=== PATIENT | male | born 1985 | race Caucasian/White ===

== ENCOUNTER 2019-12-04 16:00 | Emergency (ER) | payer SELFPAY ==
--- NOTE | 2019-12-04 17:00 | RAD REPORT ---
EXAM DESCRIPTION: RAD -Hand Left 3 View - 12/04/2019 4:39 pm CLINICAL HISTORY: Left hand pain status post injury FINDINGS: No fracture or dislocation is seen. A bandage has been placed
[2019-12-04] MEDS ORDERED: LIDOCAINE 1% MPF 30 ML VIAL ONE (17:23)
--- NOTE | 2019-12-04 18:03 | ER ---
Nurse's Notes [facility] Name: Tim Richter Age: 34 yrs Sex: Male : 1985 Arrival Date: 12/04/2019 Time: 16:01 Bed 27 Private MD: Diagnosis: Laceration without foreign body to palmar surface of left hand Presentation: 12/04 16:05 Presenting complaint: Patient states: laceration to the left hand with some glass sv today. Transition of care: patient was not received from another setting of care. Onset of symptoms was December 04, 2019. 16:05 Method Of Arrival: Ambulatory sv 16:05 Acuity: YANNI 3 sv 18:00 Complicating Factors: There are no complicating factors for this patient. Risk iw Assessment: Do you want to hurt yourself or someone else? Patient reports no desire to harm self or others. Initial Sepsis Screen: Does the patient meet any 2 criteria? No. Patient's initial sepsis screen is negative. Does the patient have a suspected source of infection? No. Patient's initial sepsis screen is negative. Care prior to arrival: None. Triage Assessment: 16:05 General: Appears in no apparent distress. uncomfortable, Behavior is cooperative, sv appropriate for age, anxious. Neuro: Level of Consciousness is awake, alert, obeys commands, Gait is steady. Respiratory: Respiratory effort is even, unlabored. Injury Description: Laceration sustained to palm of left hand is contaminated, was sustained 30-60 minutes ago. is bleeding a small amount. Historical: - Allergies: 16:06 No Known Allergies; sv - PMHx: 16:06 None; sv - PSHx: 16:06 back; sv - Immunization history:: Last tetanus immunization: up to date. - Ebola Screening: : Patient negative for fever greater than or equal to 101.5 degrees Fahrenheit, and additional compatible Ebola Virus Disease symptoms Patient denies exposure to infectious person Patient denies travel to an Ebola-affected area in the 21 days before illness onset No symptoms or risks identified at this time. - Social history:: Smoking status: unknown. Screenin:00 Abuse screen: Denies threats or abuse. Denies injuries from another. Nutritional iw screening: No deficits noted. Tuberculosis screening: No symptoms or risk factors identified. Fall Risk None identified. Assessment: 18:00 General: Appears in no apparent distress. Behavior is calm, cooperative. Pain: Denies iw pain. Neuro: Level of Consciousness is awake, alert, obeys commands, Oriented to person, place, time, situation, Moves all extremities. Full function. Cardiovascular: Patient's skin is warm and dry. Respiratory: Respiratory effort is even, unlabored, Respiratory pattern is regular, symmetrical. Derm: Skin is healthy with good turgor. Musculoskeletal: Range of motion: intact in all extremities. Injury Description: Laceration sustained to palm of left hand. 18:10 Injury Description: Laceration sustained to palm of left hand. iw Vital Signs: 16:06 BP 142 / 96; Pulse 78; Resp 18; Temp 97.3; Pulse Ox 100% ; Weight 86.64 kg; Height 6 sv ft. 2 in. (187.96 cm); 16:06 Body Mass Index 24.52 (86.64 kg, 187.96 cm) sv ED Course: 16:01 Patient arrived in ED. as 16:05 Triage completed. sv 16:06 Arm band placed on. sv 16:13 Pressure dressing applied. sv 16:41 Hand Left 3 View XRAY In Process Unspecified. EDMS 17:02 Sergio Lind FNP-C is PHCP. la1 17:02 Sd Rosa MD is Attending Physician. la1 18:00 Patient has correct armband on for positive identification. iw 18:10 Assist provider with laceration repair on palm of left hand that was between 2.6 to 7.5 iw cm Performed by Sergio MURGUIA-C Dressed with 4X4s, Kimmy, Patient tolerated well. Patient did not have IV access during this emergency room visit. 18:12 Emelina Richter, RN is Primary Nurse. iw Administered Medications: 17:50 Drug: Lidocaine (1 %) 20 ml Volume: 20 ml; Route: Infiltration; iw Outcome: 18:02 Discharge ordered by . la1 18:12 Discharged to home ambulatory, with family. iw 18:12 Condition: good 18:12 Discharge instructions given to patient, family, Instructed on discharge instructions, follow up and referral plans. Demonstrated understanding of instructions, follow-up care. 18:13 Patient left the ED. iw Signatures: Dispatcher [employer] EDMS Sallie Cantor RN RN sv Selma Ryan as Emelina Richter, RN RN iw Sergio Lind, HAIR OR BEAUTY SALON ASSISTANT-C HAIR OR BEAUTY SALON ASSISTANT-Cla1
--- NOTE | 2019-12-04 18:03 | EDPHYS ---
Physician Documentation [facility] Name: Tim Richter Age: 34 yrs Sex: Male : 1985 Arrival Date: 12/04/2019 Time: 16:01 Bed 27 Private MD: ED Physician Sd Rosa HPI: 12/04 18:02 This 34 yrs old Male presents to ER via Ambulatory with complaints of la1 Laceration To Hand. 18:02 The patient has a laceration related to: playing, occurred at home. The laceration(s) la1 is(are) located on the palm of left hand. Onset: The symptoms/episode began/occurred just prior to arrival. Associated signs and symptoms: Pertinent negatives: deformity, dizziness, heavy bleeding, loss of consciousness, numbness distal to injury, suspected foreign body. The patient has not experienced similar symptoms in the past. pt was running and fell on to a glass jar with hand outstretched. Historical: - Allergies: 16:06 No Known Allergies; sv - PMHx: 16:06 None; sv - PSHx: 16:06 back; sv - Immunization history:: Last tetanus immunization: up to date. - Ebola Screening: : Patient negative for fever greater than or equal to 101.5 degrees Fahrenheit, and additional compatible Ebola Virus Disease symptoms Patient denies exposure to infectious person Patient denies travel to an Ebola-affected area in the 21 days before illness onset No symptoms or risks identified at this time. - Social history:: Smoking status: unknown. ROS: 18:03 Constitutional: Negative for fever, chills, and weight loss, Eyes: Negative for injury, la1 pain, redness, and discharge, ENT: Negative for injury, pain, and discharge, Neck: Negative for injury, pain, and swelling, Cardiovascular: Negative for chest pain, palpitations, and edema, Respiratory: Negative for shortness of breath, cough, wheezing, and pleuritic chest pain, Abdomen/GI: Negative for abdominal pain, nausea, vomiting, diarrhea, and constipation, Back: Negative for injury and pain. 18:03 Skin: Positive for laceration(s), of the palm of left hand. Exam: 18:04 Constitutional: This is a well developed, well nourished patient who is awake, alert, la1 and in no acute distress. Head/Face: Normocephalic, atraumatic. Eyes: Pupils equal round and reactive to light, extra-ocular motions intact. Periorbital areas with no swelling, redness, or edema. ENT: . Mucous membranes moist. Neck: Trachea midline, no thyromegaly or masses palpated, and no cervical lymphadenopathy. Supple, full range of motion without nuchal rigidity, or vertebral point tenderness. No Meningismus. Chest/axilla: Normal chest wall appearance and motion. Nontender with no deformity. No lesions are appreciated. Cardiovascular: Regular rate and rhythm with a normal S1 and S2. No gallops, murmurs, or rubs. Normal PMI, no JVD. No pulse deficits. Respiratory: Lungs have equal breath sounds bilaterally, clear to auscultation No rales, rhonchi or wheezes noted. No increased work of breathing, no retractions or nasal flaring. Abdomen/GI: Soft, non-tender, with normal bowel sounds. No distension or tympany. No guarding or rebound. No evidence of tenderness throughout. Back: No spinal tenderness. No costovertebral tenderness. Full range of motion. MS/ Extremity: Pulses equal, no cyanosis. Neurovascular intact. Full, normal range of motion. 18:04 Skin: injury, laceration(s), the wound is approximately 4.5 cm(s), with a depth of 1 cm(s), of the palm of left hand. Vital Signs: 16:06 BP 142 / 96; Pulse 78; Resp 18; Temp 97.3; Pulse Ox 100% ; Weight 86.64 kg; Height 6 sv ft. 2 in. (187.96 cm); 16:06 Body Mass Index 24.52 (86.64 kg, 187.96 cm) sv Laceration: 18:05 Wound Repair of 4.5cm ( 1.8in ) subcutaneous laceration to palm of left hand. Linear la1 shaped.. Distal neuro/vascular/tendon intact. Anesthesia: Local anesthetic administered with 7 mls of 1% lidocaine. Wound prep: Moderate cleansing, Copious irrigation. Skin closed with 6 4-0 Prolene using simple sutures and sterile technique. Dressed with Kerlix, non-adherent dressing. Patient tolerated well. MDM: 17:16 Patient medically screened. la1 18:06 Data reviewed: vital signs, nurses notes, and as a result, I will discharge patient. la1 Data interpreted: Pulse oximetry: on room air is 100 %. Interpretation: normal. Counseling: I had a detailed discussion with the patient and/or guardian regarding: the historical points, exam findings, and any diagnostic results supporting the discharge/admit diagnosis, radiology results, the need for outpatient follow up, a family practitioner, to return to the emergency department if symptoms worsen or persist or if there are any questions or concerns that arise at home. Special discussion: I discussed with the patient/guardian that the patient's current presentation does not indicate dosing of antibiotics. They should follow-up with their primary care provider and return if the symptoms persist or progress. 12/04 16:12 Order name: Hand Left 3 View XRAY; Complete Time: 17:16 sv 12/04 17:20 Order name: Suture Tray at Bedside; Complete Time: 18:13 la1 12/04 17:20 Order name: Sutures, Prolene; Complete Time: 18:13 la1 Administered Medications: 17:50 Drug: Lidocaine (1 %) 20 ml Volume: 20 ml; Route: Infiltration; iw Disposition: 12/05 06:15 Co-signature as Attending Physician, Sd Rosa MD I agree with the assessment and radha plan of care. Disposition: 12/04/19 18:02 Discharged to Home. Impression: Laceration without foreign body to palmar surface of left hand. - Condition is Stable. - Discharge Instructions: Laceration Care, Adult, Sutured Wound Care, Laceration Care, Adult, [id number]. - Medication Reconciliation Form, Thank You Letter form. - Follow up: Private Physician; When: 7 - 10 days; Reason: Wound Recheck, Recheck today's complaints, Re-evaluation by your physician. - Problem is new. - Symptoms have improved. Signatures: Dispatcher [employer] Sallie Alva RN RN sv Anderson, Corey, MD MD cha Williams, Irene, RN RN iw Attema, Lee, FNP-C CORPORATE SCHEDULER-Cla1 Corrections: (The following items were deleted from the chart) 12/04 18:13 18:02 12/04/2019 18:02 Discharged to Home. Impression: Laceration without foreign body iw to palmar surface of left hand. Condition is Stable. Forms are Medication Reconciliation Form, Thank You Letter, Antibiotic Education, Prescription Opioid Use. Follow up: Private Physician; When: 7 - 10 days; Reason: Wound Recheck, Recheck today's complaints, Re-evaluation by your physician. Problem is new. Symptoms have improved. la1
[2019-12-04 18:26] VITALS: BP 142/96; TEMP 97.3; O2SAT 100
== END 2019-12-04 18:13 | disposition home or self-care (01) ==
LOC: ER 16:00
PROC: 0JQK0ZZ Repair Left Hand Subcutaneous Tissue and Fascia, Open Approach (ICD-10-PCS; principal; 2019-12-04)
DX: S61.412A Laceration without foreign body of left hand, initial encounter (principal); W25.XXXA Contact with sharp glass, initial encounter; Y93.9 Activity, unspecified; Y92.9 Unspecified place or not applicable
CPT/HCPCS: 99284

== ENCOUNTER 2020-04-29 02:23 | Emergency (ER) | payer SELFPAY ==
[2020-04-29 02:57] LABS: Protime INR 0.92
[2020-04-29 02:58] LABS: Absolute Lymphocytes (CBC) 3.7 K/uL (0.7-4.9); Basophils % 0.7 % (0-1.3); Hematocrit 42.7 % (39.6-49.0); Lymphocytes % 31.2 % (15.3-44.8); RBC Red Blood Cell Count 4.59 M/uL (4.33-5.43)
[2020-04-29 03:24] LABS: ALT/SGPT 17 U/L (12-78); AST/SGOT 19 U/L (15-37); Albumin 3.8 g/dL (3.4-5.0); Alkaline Phosphatase 60 U/L (45-117); BUN Blood Urea Nitrogen 11 mg/dL (7-18); Bicarbonate 27 mmol/L (21-32); Bilirubin Direct < 0.1 mg/dL (0-0.2); Bilirubin Total 0.3 mg/dL (0.2-1.0); Glucose Level 87 mg/dL (74-106); Magnesium 1.8 mg/dL (1.8-2.4); NT PRO-BNP 25 pg/mL (<125); Potassium 3.3 mmol/L (3.5-5.1); Protein, Total 7.1 g/dL (6.4-8.2); Sodium Level 138 mmol/L (136-145); Troponin (Emerg Dept Use Only) < 0.02 ng/mL (0.0-0.045)
[2020-04-29] MEDS ORDERED: NA CHLORIDE 0.9% 500 ML ONE (03:29)
[2020-04-29] MEDS ORDERED: LIDOCAINE 1% W/EPI 1:100,000 MDV 50 ML VIAL ONE (05:18)
[2020-04-29] MEDS ORDERED: MAGNE/ALUM HYDROXD 30 ML UCUP ONE (05:18)
[2020-04-29 06:03] LABS: Barbiturates NEGATIVE (NEGATIVE); Benzodiazepines NEGATIVE (NEGATIVE); Cocaine NEGATIVE (NEGATIVE); METHAMPHETAM POSITIVE (NEGATIVE); Methadone NEGATIVE (NEGATIVE); Opiates NEGATIVE (NEGATIVE); Phencyclidine NEGATIVE (NEGATIVE); THC Cannibis POSITIVE (NEGATIVE)
--- NOTE | 2020-04-29 06:15 | ER ---
Nurse's Notes [facility] Name: Tim Richter Age: 34 yrs Sex: Male : 1985 Arrival Date: 04/29/2020 Time: 02:26 Bed 3 Private MD: Diagnosis: Chest pain, unspecified;Methamphetamine Abuse;Marijuana Use Presentation: 04/29 02:27 Chief complaint: EMS states: Chest pain that began about 1/2 half hours ago, pt stated sg the pain began in the chest and moved to the ankles and legs, pt was HR of 130 bpm, with blood pressure of 169/70. pt is observed to be handcuffed and has a police escort with [place] [employer] officer. Coronavirus screen: Proceed with normal triage. Ebola Screen: Patient negative for fever greater than or equal to 101.5 degrees Fahrenheit, and additional compatible Ebola Virus Disease symptoms Patient denies exposure to infectious person. Patient denies travel to an Ebola-affected area in the 21 days before illness onset. No symptoms or risks identified at this time. Initial Sepsis Screen: Does the patient meet any 2 criteria? No. Patient's initial sepsis screen is negative. Does the patient have a suspected source of infection? No. Patient's initial sepsis screen is negative. Risk Assessment: Do you want to hurt yourself or someone else? Patient reports no desire to harm self or others. Onset of symptoms was April 29, 2020. Care prior to arrival: None. Activity prior to arrival: combative. Mechanism of Injury: No Mechanism of Injury. Transition of care: patient was not received from another setting of care. 02:27 Method Of Arrival: EMS: [facility] sg 02:27 Acuity: YANNI 3 sg 02:27 Care prior to arrival: Medication(s) given: ASA, 81 mg, x 4. sg Historical: - Allergies: 02:31 Nitroglycerin (Syncope ); sg - Home Meds: 02:31 None [Active]; sg - PMHx: 02:39 Myocardial infarction; "mild, while incarcerated", no interventions reported; sg - PSHx: 02:31 back; sg - Immunization history:: Adult Immunizations up to date. - Social history:: Smoking status: Patient denies any tobacco usage or history of. Screenin:56 Abuse screen: Denies threats or abuse. Nutritional screening: No deficits noted. ea Tuberculosis screening: No symptoms or risk factors identified. Fall Risk IV access (20 points). Assessment: 02:25 General: Appears uncomfortable, Behavior is drowsy. Pain: Complains of pain in anterior ea aspect of left upper chest and left breast Pain does not radiate. Pain began 2 hours ago. Neuro: Level of Consciousness is awake, alert, obeys commands, Oriented to person, place, time. Cardiovascular: Patient's skin is warm and dry. Respiratory: Airway is patent Respiratory effort is even, unlabored, Respiratory pattern is regular, symmetrical. Derm: Skin is pink, warm \\T\\ dry. 03:03 Reassessment: Pt resting with eyes closed, respirations even and unlabored, chest ea expansions even and symmetrical. No s/s of pain or discomfort noted at this time. 04:21 Reassessment: Patient and/or family updated on plan of care and expected duration. Pain ea level reassessed. Patient is alert, oriented x 3, equal unlabored respirations, skin warm/dry/pink. 04:50 Reassessment: Patient and/or family updated on plan of care and expected duration. Pain ea level reassessed. Pt encouraged to urinate, pt reports he is unable to urinate at this time. 05:05 Reassessment: Patient and/or family updated on plan of care and expected duration. Pain ea level reassessed. Patient is alert, oriented x 3, equal unlabored respirations, skin warm/dry/pink. Pt reports epigastric pain states "it's not really pain it feels like acid reflux, more like a burning sensation" Provider notified, medication order obtained, medication administered, pt tolerating well. 05:37 Reassessment: Patient and/or family updated on plan of care and expected duration. Pain ea level reassessed. Patient is alert, oriented x 3, equal unlabored respirations, skin warm/dry/pink. Pt reports epigastric burning subsided. 05:40 Reassessment: urine specimen has been sent to the lab per Asher DE LA CRUZ. sg 05:59 Reassessment: patient released from police custody as stated by the police on duty. mg2 06:36 Reassessment: Patient and/or family updated on plan of care and expected duration. Pain ea level reassessed. Patient is alert, oriented x 3, equal unlabored respirations, skin warm/dry/pink. Discharge instruction given to patient, verbalized the understanding of instruction. Pt awaiting on ride home. Vital Signs: 02:27 BP 158 / 103; Pulse 90; Resp 14; Temp 97.7; Pulse Ox 100% on R/A; Pain 3/10; sg 02:57 BP 139 / 106; Pulse 83; Resp 16; Pulse Ox 100% ; ea 03:03 BP 139 / 77; Pulse 63; Resp 16; Pulse Ox 99% ; ea 03:47 BP 132 / 76; Pulse 70; Resp 17; Pulse Ox 99% on R/A; mg2 04:50 BP 131 / 77; Pulse 64; Resp 18; Pulse Ox 99% on R/A; ea 05:59 BP 148 / 98; Pulse 57; Resp 18; Pulse Ox 100% on R/A; mg2 03:47 patient still sleeping on bed. mg2 ED Course: 02:25 Patient has correct armband on for positive identification. Bed in low position. Call ea light in reach. nurse monitoring on. Pulse ox on. NIBP on. 02:25 Initial lab(s) drawn, by ED staff. Inserted saline lock: 20 gauge in right antecubital sg area, using aseptic technique. Blood collected. 02:26 Patient arrived in ED. sg 02:27 Nicanor Winston MD is Attending Physician. [facility] 02:30 Triage completed. sg 02:32 Arm band placed on. sg 02:33 Lindsey Lew, JONO is Primary Nurse. ea 02:55 XRAY Chest (1 view) In Process Unspecified. EDMS 02:56 Patient maintains SpO2 saturation greater than 95% on room air. ea 03:48 No provider procedures requiring assistance completed. mg2 06:16 IV discontinued, intact, bleeding controlled, No redness/swelling at site. Pressure mg2 dressing applied. Administered Medications: 03:00 Drug: NS 0.9% 500 ml Route: IV; Rate: bolus; Site: right antecubital; ea 06:38 Follow up: IV Status: Completed infusion; IV Intake: 500ml ea 05:11 Drug: GI Cocktail without - (Maalox Suspension 30 ml, Lidocaine Liquid 2 % 15 mg2 ml) Route: PO; 05:35 Follow up: Response: No adverse reaction; Marked relief of symptoms ea Intake: 06:38 IV: 500ml; Total: 500ml. ea Output: 05:36 Urine: 650ml (Voided); Total: 650ml. ea Outcome: 06:14 Discharge ordered by MD. medina 06:37 Discharge instructions given to patient, Instructed on discharge instructions, follow ea up and referral plans. Demonstrated understanding of instructions, follow-up care. 06:49 Discharged to home ambulatory. mg2 06:49 Condition: good 06:49 Patient left the ED. mg2 Signatures: Dispatcher [employer] EDMarcellus Taylor RN RN Lindsey Lew RN RN ea Gardose, Michele, RN RN mg2 Holmes, Maurice, MD MD [id number] Corrections: (The following items were deleted from the chart) 02:39 02:31 PMHx: Myocardial infarction; [facility] 02:54 02:27 Chief complaint: EMS states: Chest pain that began about 1 and 1/2 half hours sg ago, pt stated the pain began in the chest and moved to the ankles and legs, pt was HR of 130 bpm, with blood pressure of 169/70. pt is observed to be handcuffed and has a police escort with PD officer
--- NOTE | 2020-04-29 06:15 | EDPHYS ---
Physician Documentation [facility] Name: Tim Richter Age: 34 yrs Sex: Male : 1985 Arrival Date: 04/29/2020 Time: 02:26 Bed 3 Private MD: ED Physician Nicanor Winston HPI: 04/29 02:40 This 34 yrs old Male presents to ER via EMS with complaints of Chest Pain. [facility] 02:42 The patient or guardian reports chest pain that is located primarily in the anterior mh7 chest wall, bilaterally. The pain radiates to legs and ankles. 02:43 Associated signs and symptoms: Pertinent negatives: abdominal pain, cough, diaphoresis, mh7 dizziness, headache, lower extremity swelling, lightheadedness, nausea, near syncope, palpitations, recent travel, shortness of breath, syncope, vomiting. The chest pain is described as sharp. Duration: The patient or guardian reports multiple episodes, that are intermittent, that wax and wane, with no pattern. Modifying factors: The symptoms are alleviated by nothing. the symptoms are aggravated by emotionally stressful situations. Severity of pain: At its worst the pain was moderate today, in the emergency department the pain has improved markedly. EMS care prior to arrival includes: aspirin. Patient started having chest pain in police car after being arrested. Denies any SOB, nausea, vomiting, headache, abdominal pain, fever, cough. Initially reported having a mild heart attack in shelter 4 years ago but then stated that he was actually told that he had acid reflux and was given something to drink for it. He never had any interventional procedures and was never put on medications at that time.. Historical: - Allergies: 02:31 Nitroglycerin (Syncope ); sg - Home Meds: 02:31 None [Active]; sg - PMHx: 02:39 Myocardial infarction; "mild, while incarcerated", no interventions reported; sg - PSHx: 02:31 back; sg - Immunization history:: Adult Immunizations up to date. - Social history:: Smoking status: Patient denies any tobacco usage or history of. ROS: 02:43 Constitutional: Negative for fever, chills, and weight loss, Eyes: Negative for injury, mh7 pain, redness, and discharge, ENT: Negative for injury, pain, and discharge, Neck: Negative for injury, pain, and swelling, Respiratory: Negative for shortness of breath, cough, wheezing, and pleuritic chest pain, Abdomen/GI: Negative for abdominal pain, nausea, vomiting, diarrhea, and constipation, Back: Negative for injury and pain, : Negative for injury, bleeding, discharge, and swelling, MS/Extremity: Negative for injury and deformity, Skin: Negative for injury, rash, and discoloration, Neuro: Negative for headache, weakness, numbness, tingling, and seizure, Psych: Negative for depression, anxiety, suicide ideation, homicidal ideation, and hallucinations, Allergy/Immunology: Negative for hives, rash, and allergies, Endocrine: Negative for neck swelling, polydipsia, polyuria, polyphagia, and marked weight changes, Hematologic/Lymphatic: Negative for swollen nodes, abnormal bleeding, and unusual bruising. Exam: 02:43 Constitutional: This is a well developed, well nourished patient who is awake, alert, mh7 and in no acute distress. Head/Face: Normocephalic, atraumatic. Eyes: Pupils equal round and reactive to light, extra-ocular motions intact. Lids and lashes normal. Conjunctiva and sclera are non-icteric and not injected. Cornea within normal limits. Periorbital areas with no swelling, redness, or edema. ENT: Nares patent. No nasal discharge, no septal abnormalities noted. Tympanic membranes are normal and external auditory canals are clear. Oropharynx with no redness, swelling, or masses, exudates, or evidence of obstruction, uvula midline. Mucous membranes moist. Neck: Trachea midline, no thyromegaly or masses palpated, and no cervical lymphadenopathy. Supple, full range of motion without nuchal rigidity, or vertebral point tenderness. No Meningismus. Chest/axilla: Normal chest wall appearance and motion. Nontender with no deformity. No lesions are appreciated. Cardiovascular: Regular rate and rhythm with a normal S1 and S2. No gallops, murmurs, or rubs. Normal PMI, no JVD. No pulse deficits. Respiratory: Lungs have equal breath sounds bilaterally, clear to auscultation and percussion. No rales, rhonchi or wheezes noted. No increased work of breathing, no retractions or nasal flaring. Abdomen/GI: Soft, non-tender, with normal bowel sounds. No distension or tympany. No guarding or rebound. No evidence of tenderness throughout. Back: No spinal tenderness. No costovertebral tenderness. Full range of motion. Skin: Warm, dry with normal turgor. Normal color with no rashes, no lesions, and no evidence of cellulitis. MS/ Extremity: Pulses equal, no cyanosis. Neurovascular intact. Full, normal range of motion. Neuro: Awake and alert, GCS 15, oriented to person, place, time, and situation. Cranial nerves II-XII grossly intact. Motor strength 5/5 in all extremities. Sensory grossly intact. Cerebellar exam normal. Normal gait. 02:43 Psych: Behavior/mood is anxious, Affect is animated, Oriented to person, place, time, Patient has no thoughts/intents to harm self or others. Judgement / Insight is normal. Memory is normal. Delusions/hallucinations are not present. 02:52 ECG was reviewed by the Attending Physician. [facility] Vital Signs: 02:27 BP 158 / 103; Pulse 90; Resp 14; Temp 97.7; Pulse Ox 100% on R/A; Pain 3/10; sg 02:57 BP 139 / 106; Pulse 83; Resp 16; Pulse Ox 100% ; ea 03:03 BP 139 / 77; Pulse 63; Resp 16; Pulse Ox 99% ; ea 03:47 BP 132 / 76; Pulse 70; Resp 17; Pulse Ox 99% on R/A; mg2 04:50 BP 131 / 77; Pulse 64; Resp 18; Pulse Ox 99% on R/A; ea 05:59 BP 148 / 98; Pulse 57; Resp 18; Pulse Ox 100% on R/A; mg2 03:47 patient still sleeping on bed. mg2 MDM: 02:37 Patient medically screened. 7 06:10 Differential diagnosis: acute myocardial infarction, coronary artery disease chest wall 7 pain, congestive heart failure gastritis, gastroesophageal reflux disease (GERD), pericarditis, pneumonia, pneumothorax. HEART Score: History: Slightly Suspicious (0), ECG: Normal (0), Age: < or = 45 years (0), Risk Factors: No Risk Factors Known (0), Troponin: < or = 1 x Normal Limit (0), Total Score = 0. Data reviewed: vital signs, nurses notes, EMS record, lab test result(s), cardiac enzymes, CBC, drug level(s), electrolytes, urinalysis, urine drug screen. Data interpreted: threat monitoring analyst: rate is 61 beats/min, rhythm is normal sinus rhythm, regular, Interpretation: normal rate, normal rhythm, Pulse oximetry: on room air is 100 %. Interpretation: normal. Counseling: I had a detailed discussion with the patient and/or guardian regarding: the historical points, exam findings, and any diagnostic results supporting the discharge/admit diagnosis, the presence of at least one elevated blood pressure reading (>120/80) during this emergency department visit, lab results, radiology results, to return to the emergency department if symptoms worsen or persist or if there are any questions or concerns that arise at home. Counseling: I had a detailed discussion with the patient and/or guardian regarding: cessation of illicit substance use. Response to treatment: the patient's symptoms have resolved after treatment, the patient's blood pressure is in an acceptable range, mental status has returned to baseline, the patient no longer shows bradycardia, the patient is not short of breath, the patient is not tachycardic, the patient's pain is gone, the patient's temperature has normalized. Special discussion: I have referred the patient to see his PCP for further evaluation of high blood pressure. 04/29 02:33 Order name: Basic Metabolic Panel; Complete Time: 03:41 ea 04/29 02:33 Order name: CBC with Diff; Complete Time: 03:11 ea 04/29 02:33 Order name: LFT's; Complete Time: 03:41 ea 04/29 02:33 Order name: Magnesium; Complete Time: 03:41 ea 04/29 02:33 Order name: NT PRO-BNP; Complete Time: 03:41 ea 04/29 02:33 Order name: PT-INR; Complete Time: 03:11 ea 04/29 02:33 Order name: Troponin (emerg Dept Use Only); Complete Time: 03:41 ea 04/29 02:33 Order name: XRAY Chest (1 view) 04/29 02:39 Order name: UDS; Complete Time: 06:08 mh7 04/29 02:39 Order name: Alcohol Level; Complete Time: 03:18 mh7 04/29 04:39 Order name: Troponin (emerg Dept Use Only): \\T\\ 0530; Complete Time: 06:08 mg2 04/29 05:39 Order name: Urine Dipstick--Ancillary (enter results) 04/29 02:33 Order name: EKG; Complete Time: 02:34 04/29 02:33 Order name: Cardiac monitoring; Complete Time: 02:33 04/29 02:33 Order name: EKG - Nurse/Tech; Complete Time: 02:33 04/29 02:33 Order name: IV Saline Lock; Complete Time: 02:33 04/29 02:33 Order name: Labs collected and sent; Complete Time: 02:40 04/29 02:33 Order name: O2 Per Protocol; Complete Time: 02:33 04/29 02:33 Order name: O2 Sat Monitoring; Complete Time: 02:33 04/29 05:39 Order name: Urine Dipstick-Ancillary (obtain specimen); Complete Time: 05:39 EC:52 Rate is 84 beats/min. Rhythm is regular, Normal Sinus Rhythm. QRS [place] is Normal. CA mh7 interval is normal. QRS interval is normal. QT interval is normal. No Q waves. T waves are Normal. No ST changes noted. Clinical impression: Normal ECG. Administered Medications: 03:00 Drug: NS 0.9% 500 ml Route: IV; Rate: bolus; Site: right antecubital; ea 06:38 Follow up: IV Status: Completed infusion; IV Intake: 500ml 05:11 Drug: GI Cocktail without - (Maalox Suspension 30 ml, Lidocaine Liquid 2 % 15 mg2 ml) Route: PO; 05:35 Follow up: Response: No adverse reaction; Marked relief of symptoms ea Disposition: 04/29/20 06:14 Discharged to Home. Impression: Chest pain, unspecified, Methamphetamine Abuse, Marijuana Use. - Condition is Stable. - Discharge Instructions: Nonspecific Chest Pain, [id number], Stimulant Use Disorder-Methamphetamines. - Medication Reconciliation Form, Thank You Letter, Antibiotic Education, Prescription Opioid Use form. - Follow up: Private Physician; When: 1 - 2 days; Reason: Worsening of condition, Recheck today's complaints, Re-evaluation by your physician. - Problem is new. - Symptoms are resolved. Signatures: Dispatcher [employer] Marcellus Mcallister RN RN sg Antunez, Elena, RN RN ea Gardose, Michele, RN RN mg2 Holmes, Maurice, MD MD 7 Corrections: (The following items were deleted from the chart) 02:39 02:31 PMHx: Myocardial infarction; sg sg 02:43 02:40 The patient or guardian reports chest pain that is located primarily in the 7 anterior chest wall, left, [facility] 02:43 02:40 The pain does not radiate. [place] [id number] 02:50 02:42 The pain radiates to right leg and left leg, [place] [id number] 06:49 06:14 04/29/2020 06:14 Discharged to Home. Impression: Chest pain, unspecified; mg2 Methamphetamine Abuse; Marijuana Use. Condition is Stable. Forms are Medication Reconciliation Form, Thank You Letter, Antibiotic Education, Prescription Opioid Use. Follow up: Private Physician; When: 1 - 2 days; Reason: Worsening of condition, Recheck today's complaints, Re-evaluation by your physician. Problem is new. Symptoms are resolved. [facility]
[2020-04-29 06:50] LABS: Urine Blood NEGATIVE (NEG); Urine Glucose NEGATIVE (NEG); Urine Protein NEGATIVE (NEG); Urine Specific Gravity 1.025 (1.005-1.030)
--- NOTE | 2020-04-29 06:53 | EKG ---
Test Date: 2020-04-29 Test Time: 02:24:52 Supervisor Weaving: STEVEN MEASUREMENT RESULTS: Intervals: Rate: 84 UT: 136 QRSD: 98 QT: 336 QTc: 397 [place]: P: 67 UT: 136 QRS: 79 T: 64 INTERPRETIVE STATEMENTS: Sinus rhythm with marked sinus arrhythmia Otherwise normal ECG Compared to ECG 08/13/2014 22:13:51 No significant changes Electronically Signed On 04-29-20 06:53:08 CDT by Tello Lazo
[2020-04-29 06:54] VITALS: TEMP 97.7
[2020-04-29 07:01] VITALS: BP 148/98; O2SAT 100
--- NOTE | 2020-04-29 08:14 | RAD REPORT ---
EXAM DESCRIPTION: RAD - Chest Single View - 04/29/2020 2:55 am CLINICAL HISTORY: CHEST PAIN COMPARISON: Portable March 2014 TECHNIQUE: AP portable chest image was obtained 04/29/2020 2:55 am . FINDINGS: Lungs are clear. Heart and vasculature are normal. No measurable pleural effusion and no p neumothorax. No acute bony abnormality seen. No acute aortic findings suspected. IMPRESSION: No acute cardiopulmonary process. No significant change from comparison.
== END 2020-04-29 06:49 | disposition home or self-care (01) ==
LOC: ER 02:23
DX: R07.9 Chest pain, unspecified (principal); F15.10 Other stimulant abuse, uncomplicated; F12.10 Cannabis abuse, uncomplicated
CPT/HCPCS: 36415; 71045; 80048; 80076; 80307; 80320; 81003; 83735; 83880; 84484; 85025; 85610; 93005; 96360; 96361; 99285; J7040

== ENCOUNTER 2020-05-19 22:15 | Emergency (ER) | payer SELFPAY ==
[2020-05-19 23:45] LABS: Absolute Lymphocytes (CBC) 2.1 K/uL (0.7-4.9); Basophils % 0.5 % (0-1.3); Hematocrit 43.3 % (39.6-49.0); Lymphocytes % 18.7 % (15.3-44.8); MPV 8.6 fL (7.6-11.3)
[2020-05-19 23:49] LABS: Barbiturates NEGATIVE (NEGATIVE); Benzodiazepines NEGATIVE (NEGATIVE); Cocaine NEGATIVE (NEGATIVE); METHAMPHETAM POSITIVE (NEGATIVE); Methadone NEGATIVE (NEGATIVE); Opiates NEGATIVE (NEGATIVE); Phencyclidine NEGATIVE (NEGATIVE); THC Cannibis POSITIVE (NEGATIVE)
[2020-05-19 23:55] LABS: Protime INR 0.99
[2020-05-20 00:05] LABS: ALT/SGPT 18 U/L (12-78); AST/SGOT 20 U/L (15-37); Albumin 3.6 g/dL (3.4-5.0); Alkaline Phosphatase 59 U/L (45-117); BUN Blood Urea Nitrogen 14 mg/dL (7-18); Bicarbonate 27 mmol/L (21-32); Bilirubin Direct 0.2 mg/dL (0-0.2); Bilirubin Total 0.6 mg/dL (0.2-1.0); Glucose Level 75 mg/dL (74-106); Potassium 3.7 mmol/L (3.5-5.1); Protein, Total 6.8 g/dL (6.4-8.2); Sodium Level 140 mmol/L (136-145)
[2020-05-20 00:19] LABS: Urine Blood NEGATIVE (NEG); Urine Glucose NEGATIVE (NEG); Urine Protein 1+ (NEG); Urine Specific Gravity >1.030 (1.005-1.030); Urine pH 5.5 (5.0-7.0)
--- NOTE | 2020-05-20 00:27 | EDPHYS ---
Physician Documentation [facility] Name: Tim Richter Age: 34 yrs Sex: Male : 1985 Arrival Date: 05/19/2020 Time: 22:22 Bed 2 Private MD: ED Physician Nicanor Winston HPI: 05/20 00:27 This 34 yrs old Male presents to ER via EMS with complaints of Altered mental jr8 status. 00:27 Patient brought in by EMS after he had been in custody for a traffic stop. PD stated jr8 that while they were arresting him stated that he told them that he was not feeling well. Stated that he then collapsed and would not get up. Patient upon arrival alert to person, place, event. Stated that he was just startled . Severity of symptoms: At their worst the symptoms were mild in the emergency department the symptoms are unchanged. The patient has not experienced similar symptoms in the past. The patient has not recently seen a physician. Historical: - Allergies: 05/19 22:12 Nitroglycerin (syncope); jb4 - Home Meds: 22:12 None [Active]; jb4 - PMHx: 22:12 Myocardial infarction; "mild, while incarcerated", no interventions reported; Seizures; jb4 - PSHx: 22:12 back; jb4 - Immunization history:: Adult Immunizations not up to date. - Social history:: Smoking status: Patient denies any tobacco usage or history of. Patient/guardian denies using alcohol, street drugs. ROS: 05/20 00:27 Eyes: Negative for injury, pain, redness, and discharge, ENT: Negative for injury, jr8 pain, and discharge, Neck: Negative for injury, pain, and swelling, Cardiovascular: Negative for chest pain, palpitations, and edema, Respiratory: Negative for shortness of breath, cough, wheezing, and pleuritic chest pain, Abdomen/GI: Negative for abdominal pain, nausea, vomiting, diarrhea, and constipation, Back: Negative for injury and pain, MS/Extremity: Negative for injury and deformity, Skin: Negative for injury, rash, and discoloration. Neuro: Positive for altered mental status. Exam: 00:27 Eyes: Pupils equal round and reactive to light, extra-ocular motions intact. Lids and jr8 lashes normal. Conjunctiva and sclera are non-icteric and not injected. Cornea within normal limits. Periorbital areas with no swelling, redness, or edema. ENT: Nares patent. No nasal discharge, no septal abnormalities noted. Tympanic membranes are normal and external auditory canals are clear. Oropharynx with no redness, swelling, or masses, exudates, or evidence of obstruction, uvula midline. Mucous membranes moist. Neck: Trachea midline, no thyromegaly or masses palpated, and no cervical lymphadenopathy. Supple, full range of motion without nuchal rigidity, or vertebral point tenderness. No Meningismus. Cardiovascular: Regular rate and rhythm with a normal S1 and S2. No gallops, murmurs, or rubs. Normal PMI, no JVD. No pulse deficits. Respiratory: Lungs have equal breath sounds bilaterally, clear to auscultation and percussion. No rales, rhonchi or wheezes noted. No increased work of breathing, no retractions or nasal flaring. Abdomen/GI: Soft, non-tender, with normal bowel sounds. No distension or tympany. No guarding or rebound. No evidence of tenderness throughout. Back: No spinal tenderness. No costovertebral tenderness. Full range of motion. Skin: Warm, dry with normal turgor. Normal color with no rashes, no lesions, and no evidence of cellulitis. MS/ Extremity: Pulses equal, no cyanosis. Neurovascular intact. Full, normal range of motion. Neuro: Awake and alert, GCS 15, oriented to person, place, time, and situation. Cranial nerves II-XII grossly intact. Motor strength 5/5 in all extremities. Sensory grossly intact. Cerebellar exam normal. Normal gait. Vital Signs: 05/19 22:12 BP 150 / 103; Pulse 70; Resp 14; Temp 98.2(O); Pulse Ox 100% on R/A; Weight 88.45 kg jb4 (R); Height 6 ft. 3 in. (190.50 cm) (R); Pain 4/10; 23:30 BP 138 / 87; Pulse 57; Resp 16; Pulse Ox 100% on R/A; jb4 05/20 00:30 BP 126 / 82; Pulse 62; Resp 16; Pulse Ox 100% on R/A; jb4 05/19 22:12 Body Mass Index 24.37 (88.45 kg, 190.50 cm) [facility] MDM: 06/30 22:22 Patient medically screened. 05/20 00:25 Data reviewed: vital signs, nurses notes, lab test result(s), EKG, and as a result, I jr8 will discharge patient. Data interpreted: Pulse oximetry: on room air is 100 %. Interpretation: normal. Counseling: I had a detailed discussion with the patient and/or guardian regarding: the historical points, exam findings, and any diagnostic results supporting the discharge/admit diagnosis, lab results, the need for outpatient follow up, a family practitioner, to return to the emergency department if symptoms worsen or persist or if there are any questions or concerns that arise at home. ED course: Patient feeling better. No acute findings on labs. Meth and TCH positive. VS stable. Will release back to PD. 05/19 22:23 Order name: Acetaminophen; Complete Time: 00:05/19 22:23 Order name: Basic Metabolic Panel; Complete Time: 00:05/19 22:23 Order name: CBC with Diff; Complete Time: 00:05/19 22:23 Order name: ETOH Level; Complete Time: 00:05/19 22:23 Order name: Hepatic Function; Complete Time: 00:05/19 22:23 Order name: PT-INR; Complete Time: :05/19 22:23 Order name: Ptt, Activated; Complete Time: 00:05/19 22:23 Order name: Salicylate; Complete Time: 00:05/19 22:23 Order name: Urine Drug Screen; Complete Time: 00:05/19 22:23 Order name: EKG; Complete Time: 22:24 05/19 22:23 Order name: EKG - Nurse/Tech; Complete Time: 23:30 05/19 22:23 Order name: IV Saline Lock; Complete Time: :05/19 22:23 Order name: Labs collected and sent; Complete Time: :05/19 23:26 Order name: Urine Dipstick--Ancillary (enter results); Complete Time: 00: [facility] 05/19 22:23 Order name: Urine Dipstick-Ancillary (obtain specimen); Complete Time: 23:31 jr8 Administered Medications: No medications were administered Disposition: 01:22 Co-signature as Attending Physician, Nicanor Winston MD. mh7 Disposition: 05/20/20 00:26 Discharged to Law Enforcement. Impression: Altered mental status, unspecified. - Condition is Stable. - Discharge Instructions: Drug Overdose. - Medication Reconciliation Form, Thank You Letter, Antibiotic Education, Prescription Opioid Use form. - Follow up: Private Physician; When: As needed; Reason: Recheck today's complaints, Continuance of care, Re-evaluation by your physician. - Problem is new. - Symptoms have improved. Signatures: Dispatcher [employer] EDMS Sreekanth Carrillo PA PA jr8 Maurilio Muir RN RN jb4 Nicanor Winston MD MD 7 Corrections: (The following items were deleted from the chart) 00:42 00:26 05/20/2020 00:26 Discharged to Law Enforcement. Impression: Altered mental jb4 status, unspecified. Condition is Stable. Forms are Medication Reconciliation Form, Thank You Letter, Antibiotic Education, Prescription Opioid Use. Follow up: Private Physician; When: As needed; Reason: Recheck today's complaints, Continuance of care, Re-evaluation by your physician. Problem is new. Symptoms have improved. jr8
--- NOTE | 2020-05-20 00:27 | ER ---
Nurse's Notes [facility] Name: Tim Richter Age: 34 yrs Sex: Male : 1985 Arrival Date: 05/19/2020 Time: 22:22 Bed 2 Private MD: Diagnosis: Altered mental status, unspecified Presentation: 05/19 22:12 Chief complaint: EMS states: Pt was standing upon our arrival. He was A\\T\\0 but closed jb4 his eyes and would not respond. Would not even respond to sternal rub. We got him in the back of the ambulance and he vomited twice and tried to lunge across the ambulance. I gave him 12.5mg of Phenergan. He has and 18g to the LAC. Pt was having seizure like activity. safety and security officer reports that patient was talking and alert and oriented. Once the officer mentioned a warrant, the patient collapsed to the ground and had seizure like activity prior to EMS arrival. As EMS was arriving, Pt then stood up. 22:12 Coronavirus screen: Proceed with normal triage. Ebola Screen: No symptoms or risks jb4 identified at this time. Initial Sepsis Screen: Does the patient meet any 2 criteria? No. Patient's initial sepsis screen is negative. Does the patient have a suspected source of infection? No. Patient's initial sepsis screen is negative. Risk Assessment: Do you want to hurt yourself or someone else? Patient reports no desire to harm self or others. Onset of symptoms was May 19, 2020. Transition of care: patient was not received from another setting of care. 22:12 Method Of Arrival: EMS: [facility] jb4 22:12 Acuity: YANNI 3 jb4 Historical: - Allergies: 22:12 Nitroglycerin (syncope); jb4 - Home Meds: 22:12 None [Active]; jb4 - PMHx: 22:12 Myocardial infarction; "mild, while incarcerated", no interventions reported; Seizures; jb4 - PSHx: 22:12 back; jb4 - Immunization history:: Adult Immunizations not up to date. - Social history:: Smoking status: Patient denies any tobacco usage or history of. Patient/guardian denies using alcohol, street drugs. Screenin:12 Abuse screen: Denies threats or abuse. Nutritional screening: No deficits noted. jb4 Tuberculosis screening: No symptoms or risk factors identified. Fall Risk IV access (20 points). Total Montoya Fall Scale indicates No Risk (0-24 pts). Assessment: 22:12 General: Appears in no apparent distress. comfortable, Behavior is calm, cooperative, jb4 appropriate for age, When asked by Charge nurse to state name and date of for PT ID, pt states " Fuck you I don't have to talk to you." sailing officer states " You cannot talk to her like that" Pt states " I don't have to talk to the bitch, you or him" Addressing the charge nurse, myself, and the officer. Pt then states " I was talking to that bitch in the corner, yea you, yea that's right. Get out of here." Referring to a person who is standing in the corner of the room who is not there. When asked if patient had use any street drugs recently, pt went back to addressing the person in the corner of the room who is not there. When patient was no longer being address patient laid back in the bed, closed his eyes and attempted to rest.. Pain: Complains of pain in left lateral anterior chest and anterior aspect of left lateral abdomen Pain does not radiate. Pain currently is 6 out of 10 on a pain scale. Unable to use pain scale. FLACC scale score is 0 out of 10. Neuro: Level of Consciousness is awake, alert, obeys commands, Oriented to person, place, time, situation. Cardiovascular: Patient's skin is warm and dry. Respiratory: Airway is patent Respiratory effort is even, unlabored, Respiratory pattern is regular, symmetrical, Breath sounds are clear bilaterally. GI: Abdomen is flat, Bowel sounds present X 4 quads. Abd is soft and non tender X 4 quads. : No signs and/or symptoms were reported regarding the genitourinary system. EENT: No signs and/or symptoms were reported regarding the EENT system. Derm: Skin is intact, Skin is pink, warm \\T\\ dry. Musculoskeletal: Circulation, motion, and sensation intact. Range of motion: intact in all extremities. 23:00 Reassessment: Patient appears in no apparent distress at this time. Patient and/or jb4 family updated on plan of care and expected duration. Pain level reassessed. Patient is alert, oriented x 3, equal unlabored respirations, skin warm/dry/pink. Pt appears to be resting comfortably in bed. 05/20 00:00 Reassessment: Patient appears in no apparent distress at this time. No changes from jb4 previously documented assessment. Patient and/or family updated on plan of care and expected duration. Pain level reassessed. Patient is alert, oriented x 3, equal unlabored respirations, skin warm/dry/pink. 00:40 Reassessment: PT refused to sign discharge papers, attempted to lunge at the primary [facility] nurse with the pen. Vital Signs: 05/19 22:12 BP 150 / 103; Pulse 70; Resp 14; Temp 98.2(O); Pulse Ox 100% on R/A; Weight 88.45 kg jb4 (R); Height 6 ft. 3 in. (190.50 cm) (R); Pain 4/10; 23:30 BP 138 / 87; Pulse 57; Resp 16; Pulse Ox 100% on R/A; jb4 05/20 00:30 BP 126 / 82; Pulse 62; Resp 16; Pulse Ox 100% on R/A; jb4 05/19 22:12 Body Mass Index 24.37 (88.45 kg, 190.50 cm) jb4 ED Course: 05/19 22:12 Arm band placed on right wrist. jb4 22:12 Patient has correct armband on for positive identification. Bed in low position. Call 4 light in reach. Side rails up X 1. Pulse ox on. NIBP on. 22:22 Patient arrived in ED. lp1 22:22 [facility]illo [facility] jr8 22:22 Nicanor Winston MD is Attending Physician. jr8 22:26 Maurilio Muir, JONO is Primary Nurse. jb4 05/20 00:08 Triage completed. jb4 00:42 No provider procedures requiring assistance completed. IV discontinued, intact, jb4 bleeding controlled, No redness/swelling at site. Pressure dressing applied. Administered Medications: No medications were administered Outcome: 00:26 Discharge ordered by . jr8 00:42 Discharged to Law Enforcement jb4 00:42 Condition: stable 00:42 Discharge instructions given to patient, police, Instructed on discharge instructions, follow up and referral plans. Demonstrated understanding of instructions. 00:42 Patient left the ED. jb4 Signatures: Laura Leblanc JOON RN lp1 Sreekanth Carrillo PA PA jr8 Maurilio Muir, JONO RN jb4
--- NOTE | 2020-05-20 07:16 | EKG ---
Test Date: 2020-05-19 Test Time: 22:44:54 Sander Machine: TLT MEASUREMENT RESULTS: Intervals: Rate: 50 WV: 114 QRSD: 94 QT: 416 QTc: 379 [place]: P: 68 WV: 114 QRS: 91 T: 70 INTERPRETIVE STATEMENTS: Sinus bradycardia Rightward axis Borderline ECG Compared to ECG 04/29/2020 02:24:52 Right-axis deviation now present Sinus rhythm no longer present Sinus arrhythmia no longer present Electronically Signed On 05-20-20 07:15:36 CDT by Tello Lazo
== END 2020-05-20 00:42 ==
LOC: ER 22:15
DX: R41.82 Altered mental status, unspecified (principal); I25.2 Old myocardial infarction; Z88.8 Allergy status to other drugs, medicaments and biological substances
CPT/HCPCS: 36415; 80048; 80076; 80307; 80320; 80329; 81003; 85025; 85610; 85730; 93005; 99283